=== PATIENT | female | born 1995 | race Caucasian/White ===

== ENCOUNTER 2018-07-09 16:20 | Emergency (ER) | payer MEDICAID, OTHER ==
[~2018-07-09] VITALS: Ht 165.1 cm; Wt 74.4 kg
[2018-07-09 16:27] VITALS: BP 122/72
--- NOTE | 2018-07-09 16:35 | NUR ---
PATIENT PRESENTS TO ED WITH 3CM HORIZONTAL LACERATION TO LEFT PALM BETWEEN 3RD & 4TH DIGITS WHILE WASHING DISHES DENIES N/V/D; SKIN IS PINK/WARM/DRY; AAOX4 WITH EVEN AND STEADY GAIT; LUNGS CLEAR BL; HR EVEN AND REGULAR; PT DENIES ANY FEVER, CP, SOB, OR COUGH AT THIS TIME; PATIENT STATES PAIN OF 6/10 AT THIS TIME; VSS; PATIENT POSITIONED FOR COMFORT; HOB ELEVATED; BEDRAILS UP X2; BED DOWN. ER MD MADE AWARE OF PT STATUS.
[2018-07-09] MEDS ORDERED: LIDOCAINE 1% ***ER ONLY *** 10 MG/ML VIAL INJ ONE (16:40)
[2018-07-09] MEDS ORDERED: LIDOCAINE 2% 100 MG/5 ML SYR IVP ONE (16:50)
--- NOTE | 2018-07-09 16:50 | NUR ---
SUTURE REPAIR KIT AT BEDSIDE ---TETANUS IM GIVEN AWAITS MD KEENE
[2018-07-09] MEDS ORDERED: BACITRACIN OINT 500 UNITS/GM PKT TP ONE (17:25)
[2018-07-09 17:58] VITALS: BP 128/78
== END 2018-07-09 17:59 | disposition home or self-care (01) ==
LOC: MED 16:20
DX: S61.412A Laceration without foreign body of left hand, initial encounter (principal); Z90.89 Acquired absence of other organs; Z79.899 Other long term (current) drug therapy; W26.8XXA Contact with other sharp object(s), not elsewhere classified, initial encounter; Y93.89 Activity, other specified; Y92.89 Other specified places as the place of occurrence of the external cause; Y99.8 Other external cause status
CPT/HCPCS: 12002; 90471; 90715; 99283; J2001

== ENCOUNTER 2019-10-15 08:31 | Emergency (ER) | payer OTHER ==
[~2019-10-15] VITALS: Ht 167.6 cm; Wt 66.7 kg
--- NOTE | 2019-10-15 08:38 | NUR ---
PT TAKEN TO ER BED 12
[2019-10-15 08:39] VITALS: BP 126/66
--- NOTE | 2019-10-15 09:12 | NUR ---
BIB SELF C/O FLU-LIKE SYMPTOMS, N/V/D, CHILLS, BODY ACHES, FEVER SINCE LAST TUESDAY. PATIENT REPORTS TO HAVE A DRY COUGH/RHINORHHEA THAT WORSENS DURING NIGHT. RESPIRATIONS ARE EVEN AND UNLABORED. NO SOB/CP REPORTED. NO ACCESSORY MUSCLE USE. BOWEL SOUNDS NORMOACTIVE IN ALL QUADRANTS. PT REPORTS TAKING TWO MOTRIN AT 0700. BODY ACHES 5/10 THROUGHOUT ENTIRE BODY. AAOX4. VSS. NO PMH NKA
[2019-10-15 09:45] VITALS: BP 126/66
--- NOTE | 2019-10-15 09:46 | NUR ---
Patient discharged with v/s stable. Written and verbal after care instructions given and explained. Patient verbalized understanding. Ambulatory with steady gait. All questions addressed prior to discharge. Advised to follow up with PMD.
== END 2019-10-15 09:46 | disposition home or self-care (01) ==
LOC: MED 08:31
DX: R05 Cough (principal); R09.89 Other specified symptoms and signs involving the circulatory and respiratory systems; R50.9 Fever, unspecified
CPT/HCPCS: 99283